=== PATIENT | male | born 1985 | race Caucasian/White ===

== ENCOUNTER 2017-03-10 23:00 | Emergency (ER) | payer OTHER ==
--- NOTE | 2017-03-10 23:37 | EDM.PDOC ---
ED HPI GENERAL MEDICAL PROBLEM - General Chief Complaint: Upper Extremity Injury/Pain Stated Complaint: SMASHED HIS LEFT HAND Time Seen by Provider: 03/10/17 23:35 - History of Present Illness INITIAL COMMENTS - FREE TEXT/NARRATIVE: HISTORY AND PHYSICAL: History of present illness: Patient 31-year-old white malein the past medical history presents for concern of acute left hand injury that occurred with blunt force trauma from a pipe he denies other trauma or concern is primarily involves the third digit of his left Review of systems: As per history of present illness and below otherwise all systems reviewed and negative. Past medical history: As per history of present illness and as reviewed below otherwise noncontributory. Surgical history: As per history of present illness and as reviewed below otherwise noncontributory. Social history: No reported history of drug or alcohol abuse. Family history: As per history of present illness and as reviewed below otherwise noncontributory. Physical exam: HEENT: Atraumatic, normocephalic, pupils reactive, negative for conjunctival pallor or scleral icterus, mucous membranes moist, throat clear, neck supple, nontender, trachea midline. Lungs: Clear to auscultation, breath sounds equal bilaterally, chest nontender. Heart: S1S2, regular, negative for clicks, rubs, or JVD. Abdomen: Soft, nondistended, nontender. Negative for masses or hepatosplenomegaly. Negative for costovertebral tenderness. Pelvis: Stable nontender. Genitourinary: Deferred. Rectal: Deferred. Extremities: Patient has tenderness swelling in the region of the distal third digit of his left hand is no gross deformity no tendon involvement CMS neurovascular exams unremarkable Neuro: Awake, alert, oriented. Cranial nerves II through XII unremarkable. Cerebellum unremarkable. Motor and sensory unremarkable throughout. Exam nonfocal. Diagnostics: X-ray left Therapeutics: To be determined Impression: #1 acute left hand injury (blunt force trauma) Definitive disposition and diagnosis as appropriate pending reevaluation and review of above. left hand Pain Score (Numeric/FACES): 7 - Related Data Allergies Allergy/AdvReac Type Severity Reaction Status Date / Time Penicillins Allergy Hives Verified 03/10/17 23:23 Home Meds: Home Meds . [No Known Home Meds] 03/10/17 [History] Past Medical History - Past Health History Medical/Surgical History: Denies Medical/Surgical History Social & Family History - Family History Family Medical History: Noncontributory - Tobacco Use Smoking Status *Q: Never Smoker - Recreational Drug Use Recreational Drug Use: No Review of Systems - Review of Systems Review Of Systems: ROS reveals no pertinent complaints other than HPI. ED EXAM, GENERAL - Physical Exam Exam: See Below (The dictation) Course - Vital Signs Last Recorded V/S: Last Vital Signs Temp 36.6 C 03/10/17 23:00 Pulse 67 03/10/17 23:00 Resp 16 03/10/17 23:00 BP 131/76 03/10/17 23:00 Pulse Ox 97 03/10/17 23:00 - Orders/Labs/Meds Orders: Active Orders 24 hr Category Date Time Status Hand Comp Min 3V Lt [CR] Stat Exams 03/10/17 23:20 Taken Departure - Departure Time of Disposition: 23:37 Disposition: Home, Self-Care 01 Condition: Good Clinical Impression: Hand injury, Hand fracture - Discharge Information Referrals: PCP,None [Primary Care Provider] - Forms: ED Department Discharge Additional Instructions: The following information is given to patients seen in the emergency department who are being discharged to home. This information is to outline your options for follow-up care. We provide all patients seen in our emergency department with a follow-up referral. The need for follow-up, as well as the timing and circumstances, are variable depending upon the specifics of your emergency department visit. If you don't have a primary care physician on staff, we will provide you with a referral. We always advise you to contact your personal physician following an emergency department visit to inform them of the circumstance of the visit and for follow-up with them and/or the need for any referrals to a consulting specialist. The emergency department will also refer you to a specialist when appropriate. This referral assures that you have the opportunity for followup care with a specialist. All of these measure are taken in an effort to provide you with optimal care, which includes your followup. Under all circumstances we always encourage you to contact your private physician who remains a resource for coordinating your care. When calling for followup care, please make the office aware that this follow-up is from your recent emergency room visit. If for any reason you are refused follow-up, please contact the [facility] emergency department at and asked to speak to the emergency department charge nurse. [facility] [address] [place] [id number] Splint as directed Motrin/Tylenol as directed follow-up hand surgery call above to schedule routine appointment return as needed as discussed] - My Orders Last 24 Hours: My Active Orders 03/10/17 23:20 Hand Comp Min 3V Lt [CR] Stat - Assessment/Plan Last 24 Hours: My Active Orders 03/10/17 23:20 Hand Comp Min 3V Lt [CR] Stat
[2017-03-11] MEDS ORDERED: methylPREDNISolone Sodium Succinate 1,000 MG/8 ML SDV IV STA (00:27)
--- NOTE | 2017-03-11 14:34 | CR ---
EXAM DATE: 03/10/17 PATIENT'S AGE: 31 Patient: BHAVANI FONSECA Facility: [place], [place] Site . Site : 1985 Study: XRay Extremity Left Hand [id number]/6/2017 12:09:27 AM Ordering Physician: Doctor Franco Final Report: INDICATION: Pipe fell on hand, swelling. TECHNIQUE: Hand radiograph 3 views COMPARISON: None FINDINGS: Oblique fracture lines at the left 3rd distal phalanx with adjacent soft tissue swelling. Fracture lines do not extend to the 3rd DIP joint. Alignment of the DIP and PIP joints normal. No radiopaque soft tissue foreign body. IMPRESSION: 1. Acute fracture, left 3rd distal phalanx. Dictated by Quinten Mccarthy MD @ 03/11/2017 12:12:07 AM Dictated by: Quinten Mccarthy MD @ 03/11/2017 00:12:13 (Electronic Signature) Report Signed by Proxy. SUJATHA
== END 2017-03-11 00:30 | disposition home or self-care (01) ==
LOC: MW.ED 23:00
DX: S62.633A Displaced fracture of distal phalanx of left middle finger, initial encounter for closed fracture (principal); W22.8XXA Striking against or struck by other objects, initial encounter; Z88.0 Allergy status to penicillin
CPT/HCPCS: 73130-26-LT; 73130-LT; 99282; 99283

== ENCOUNTER 2019-06-08 21:19 | Emergency (ER) | payer BC ==
[2019-06-08] MEDS ORDERED: Sodium Chloride 0.9% 1,000 ML IV ONE (22:01)
[2019-06-08] MEDS ORDERED: Ondansetron 4 MG/2 ML SDV IVPUSH ONE (22:01)
[2019-06-08] MEDS ORDERED: Ketorolac 30 MG/ML SDV IVPUSH ONE (22:01)
[2019-06-08] MEDS ORDERED: Sodium Chloride 0.9% 2.5 ML Syringe FLUSH PRN (22:01)
[2019-06-08] MEDS ORDERED: Sodium Chloride 0.9% 10 ML Syringe FLUSH PRN (22:01)
--- NOTE | 2019-06-08 22:04 | EDM.PDOC ---
ED HPI GENERAL MEDICAL PROBLEM - General Chief Complaint: Back Pain or Injury Stated Complaint: PAIN IN LOWER BACK AND ABDOMINAL Time Seen by Provider: 06/08/19 21:53 - History of Present Illness INITIAL COMMENTS - FREE TEXT/NARRATIVE: HISTORY AND PHYSICAL: History of present illness: The patient is a 33-year-old male with no significant past medical history and no GI or history who presents with onset of nausea and feeling ill about noon time which progressed and he came home from work as he was developing some lower back pain bilaterally and he went to sleep. He woke up and his lower back seem more achy but he had no abdominal complaints no urinary complaints and still had nausea. He only vomited here in the waiting room in the ER. He said no fevers cough chest pain or shortness of breath no dysuria frequency urgency and no flank pain. He last ate at lunchtime and currently is not hungry. He has not had any upper respiratory complaints and no recent trauma. He has no midline neck or back pain and no recent falls. He says he has had backaches in the past but is never seen a doctor for them. The pain he is describing is deep and achy in his bilateral lumbar back and does not localize right or left. He did not take any medication for this discomfort. The patient does not feel bloated or gassy and says that there is some mild discomfort with movement. The patient says he had a normal bowel movement today that was not black or bloody Review of systems: As per history of present illness and below otherwise all systems reviewed and negative. Past medical history: As per history of present illness and as reviewed below otherwise noncontributory. Surgical history: As per history of present illness and as reviewed below otherwise noncontributory. Social history: No reported history of drug or alcohol abuse. Family history: As per history of present illness and as reviewed below otherwise noncontributory. Physical exam: General: Well-developed well-nourished man who is nontoxic and moves easily in the ED. Vital signs are noted by me HEENT: Atraumatic, normocephalic, pupils reactive, negative for conjunctival pallor or scleral icterus, mucous membranes moist, throat clear, neck supple, nontender, trachea midline. Lungs: Clear to auscultation, breath sounds equal bilaterally, chest nontender. Heart: S1S2, regular, negative for clicks, rubs, or JVD. Abdomen: Soft, nondistended, bowel sounds are hypoactive and there is some mild right lower quadrant tenderness without rebound or guarding. Negative for masses or hepatosplenomegaly. Negative for costovertebral tenderness. Pelvis: Stable nontender. Genitourinary: Deferred. Rectal: Deferred. Extremities: Atraumatic, negative for cords or calf pain. Neurovascular unremarkable. Neuro: Awake, alert, oriented. Cranial nerves II through XII unremarkable. Cerebellum unremarkable. Motor and sensory unremarkable throughout. Exam nonfocal. Back: There are no midline step-offs tenderness defects of the thoracic or lumbar spine no posterior rib or CVA tenderness and some minimal tenderness to palpation of the lower lumbar area bilaterally without localization. Diagnostics: UA with reflex CBC CMP CT scan of the abdomen and pelvis Therapeutics: IV fluids Zofran Toradol The patient feels improved and I discussed with him all testing results and need to increase hydration and to follow-up if the symptoms return. Impression: Lumbar back pain, nausea with one episode of vomiting resolved Definitive disposition and diagnosis as appropriate pending reevaluation and review of above. back Pain Score (Numeric/FACES): 7 - Related Data Allergies Allergy/AdvReac Type Severity Reaction Status Date / Time Penicillins Allergy Hives Verified 06/08/19 21:31 Home Meds: Home Meds . [No Known Home Meds] 03/10/17 [History] Past Medical History - Past Health History Medical/Surgical History: Denies Medical/Surgical History Gastrointestinal History: Reports: Chronic Constipation - Infectious Disease History Infectious Disease History: Reports: Chicken Pox Social & Family History - Family History Family Medical History: Noncontributory - Tobacco Use Smoking Status *Q: Current Every Day Smoker Years of Tobacco use: 5 Packs/Tins Daily: 1 - Caffeine Use Caffeine Use: Reports: Coffee - Alcohol Use Days Per Week of Alcohol Use: 7 Number of Drinks Per Day: 2 Total Drinks Per Week: 14 - Recreational Drug Use Recreational Drug Use: No ED ROS GENERAL - Review of Systems Review Of Systems: Comprehensive ROS is negative, except as noted in HPI. ED EXAM, GENERAL - Physical Exam Exam: See Below (see dictation) Course - Vital Signs Last Recorded V/S: Last Vital Signs Temp 36.1 C 06/08/19 21:27 Pulse 107 H 06/08/19 21:27 Resp 19 06/08/19 21:27 BP 146/66 H 06/08/19 21:27 Pulse Ox 94 L 06/08/19 21:27 - Orders/Labs/Meds Orders: Active Orders 24 hr Category Date Time Status Sodium Chloride 0.9% [Saline Flush] Med 06/08/19 22:01 Active 10 ml FLUSH ASDIRECTED PRN Sodium Chloride 0.9% [Saline Flush] Med 06/08/19 22:01 Active 2.5 ml FLUSH ASDIRECTED PRN Saline Lock Insert [OM.PC] Stat Oth 06/08/19 22:00 Ordered Medication Orders Sodium Chloride (Saline Flush) 10 ml FLUSH ASDIRECTED PRN PRN Reason: Keep Vein Open Sodium Chloride (Saline Flush) 2.5 ml FLUSH ASDIRECTED PRN PRN Reason: Keep Vein Open Labs: Laboratory Tests 06/08/19 06/08/19 06/08/19 Range/Units 21:54 22:22 22:22 WBC 8.16 (4.0-11.0) K/uL RBC 5.59 (4.50-5.90) M/uL Hgb 17.3 H (13.0-17.0) g/dL Hct 47.7 (38.0-50.0) % MCV 85.3 (80.0-98.0) fL MCH 30.9 (27.0-32.0) pg MCHC 36.3 (31.0-37.0) g/dL RDW Std Deviation 38.2 (28.0-62.0) fl RDW Coeff of Cruz 12 (11.0-15.0) % Plt Count 170 (150-400) K/uL MPV 10.00 (7.40-12.00) fL Neut % (Auto) 85.9 H (48.0-80.0) % Lymph % (Auto) 7.5 L (16.0-40.0) % [place] % (Auto) 6.0 (0.0-15.0) % Eos % (Auto) 0.5 (0.0-7.0) % Baso % (Auto) 0.1 (0.0-1.5) % Neut # (Auto) 7.0 H (1.4-5.7) K/uL Lymph # (Auto) 0.6 (0.6-2.4) K/uL [place] # (Auto) 0.5 (0.0-0.8) K/uL Eos # (Auto) 0.0 (0.0-0.7) K/uL Baso # (Auto) 0.0 (0.0-0.1) K/uL Nucleated RBC % 0.0 /100WBC Nucleated RBCs # 0 K/uL Sodium 141 (136-148) mmol/L Potassium 3.7 (3.5-5.1) mmol/L Chloride 102 (98-107) mmol/L Carbon Dioxide 25.9 (21.0-32.0) mmol/L BUN 17 (7.0-18.0) mg/dL Creatinine 1.1 (0.8-1.3) mg/dL Est Cr Clr Drug Dosing 97.27 mL/min Estimated GFR (MDRD) > 60.0 ml/min Glucose 113 H (74-106) mg/dL Calcium 8.7 (8.5-10.1) mg/dL Total Bilirubin 0.8 (0.2-1.0) mg/dL AST 20 (15-37) IU/L ALT 36 (14-63) IU/L Alkaline Phosphatase 51 (46-116) U/L Total Protein 7.5 (6.4-8.2) g/dL Albumin 4.3 (3.4-5.0) g/dL Globulin 3.2 (2.6-4.0) g/dL Albumin/Globulin Ratio 1.3 (0.9-1.6) Urine Color YELLOW Urine Appearance CLEAR Urine pH 6.5 (5.0-8.0) Ur Specific [place] 1.020 (1.001-1.035) Urine Protein NEGATIVE (NEGATIVE) mg/dL Urine Glucose (UA) NEGATIVE (NEGATIVE) mg/dL Urine Ketones 40 H (NEGATIVE) mg/dL Urine Occult Blood NEGATIVE (NEGATIVE) Urine Nitrite NEGATIVE (NEGATIVE) Urine Bilirubin SMALL H (NEGATIVE) Urine Ictotest NEGATIVE Urine Urobilinogen 1.0 (<2.0) EU/dL Ur Leukocyte Esterase NEGATIVE (NEGATIVE) Meds: Medications Generic Name Dose Route Start Last Admin Trade Name Freq PRN Reason Stop Dose Admin Sodium Chloride 10 ml 06/08/19 22:01 Saline Flush FLUSH ASDIRECTED PRN Keep Vein Open Sodium Chloride 2.5 ml 06/08/19 22:01 Saline Flush FLUSH ASDIRECTED PRN Keep Vein Open Discontinued Medications Generic Name Dose Route Start Last Admin Trade Name Nargis PRN Reason Stop Dose Admin Sodium Chloride 1,000 mls @ 999 mls/hr 06/08/19 22:01 06/08/19 22:23 Normal Saline IV 06/08/19 23:01 999 mls/hr STAT ONE Administration Ketorolac Tromethamine 30 mg 06/08/19 22:01 06/08/19 22:23 Toradol IVPUSH 06/08/19 22:02 30 mg ONETIME ONE Administration Ondansetron HCl 4 mg 06/08/19 22:01 06/08/19 22:23 Zofran IVPUSH 06/08/19 22:02 4 mg ONETIME ONE Administration Departure - Departure Time of Disposition: 23:20 Disposition: Home, Self-Care 01 Condition: Good Clinical Impression: Back pain Qualifiers: Back pain location: low back pain Chronicity: unspecified Back pain laterality : bilateral Sciatica presence: without sciatica Qualified Code(s): M54.5 - Low back pain Vomiting Qualifiers: Vomiting type: unspecified Vomiting Intractability: non-intractable Nausea presence: with nausea Qualified Code(s): R11.2 - Nausea with vomiting, unspecified - Discharge Information Referrals: PCP,None [Primary Care Provider] - Forms: ED Department Discharge Additional Instructions: The following information is given to patients seen in the emergency department who are being discharged to home. This information is to outline your options for follow-up care. We provide all patients seen in our emergency department with a follow-up referral. The need for follow-up, as well as the timing and circumstances, are variable depending upon the specifics of your emergency department visit. If you don't have a primary care physician on staff, we will provide you with a referral. We always advise you to contact your personal physician following an emergency department visit to inform them of the circumstance of the visit and for follow-up with them and/or the need for any referrals to a consulting specialist. The emergency department will also refer you to a specialist when appropriate. This referral assures that you have the opportunity for followup care with a specialist. All of these measure are taken in an effort to provide you with optimal care, which includes your followup. Under all circumstances we always encourage you to contact your private physician who remains a resource for coordinating your care. When calling for followup care, please make the office aware that this follow-up is from your recent emergency room visit. If for any reason you are refused follow-up, please contact the [facility] emergency department at and ask to speak to the emergency department charge nurse. [facility] Primary care- Internal Medicine and Family [address] [address] Push hydration and try to reduce caffeine use. Use [id number] ibuprofen or Tylenol as well as heat and ice to the areas of your back for discomfort. Try to do all movements more slowly and use good body mechanics for bending and lifting. Follow-up with 1 of our providers in the clinic for reevaluation and further care and return to ER as needed and as discussed Sepsis Event Note - Evaluation Sepsis Screening Result: No Definite Risk - Focused Exam Vital Signs: Vital Signs Temp Pulse Resp BP Pulse Ox 06/08/19 21:27 36.1 C 107 H 19 146/66 H 94 L Date Exam was Performed: 06/08/19 Time Exam was Performed: 23:20 - My Orders Last 24 Hours: My Active Orders 06/08/19 22:00 Saline Lock Insert [OM.PC] Stat 06/08/19 22:01 Sodium Chloride 0.9% [Saline Flush] 10 ml FLUSH ASDIRECTED PRN Sodium Chloride 0.9% [Saline Flush] 2.5 ml FLUSH ASDIRECTED PRN - Assessment/Plan Last 24 Hours: My Active Orders 06/08/19 22:00 Saline Lock Insert [OM.PC] Stat 06/08/19 22:01 Sodium Chloride 0.9% [Saline Flush] 10 ml FLUSH ASDIRECTED PRN Sodium Chloride 0.9% [Saline Flush] 2.5 ml FLUSH ASDIRECTED PRN
--- NOTE | 2019-06-08 22:40 | CT ---
INDICATION: Right flank pain. CT ABDOMEN AND PELVIS WITHOUT CONTRAST TECHNIQUE: Multidetector CT imaging was performed through the abdomen and pelvis without intravenous or oral contrast. Coronal and sagittal reconstructions were generated. COMPARISON: None. FINDINGS: No stones are visualized within the kidneys, ureters, or urinary bladder. There is no ureteral dilation, hydronephrosis, or perinephric/periureteral stranding to suggest ureteral obstruction. Included portions of the lower chest show the lung bases to be clear. No abnormalities are demonstrated in the unenhanced liver, spleen, gallbladder, pancreas, stomach, and adrenals. Bowel loops are of normal caliber and demonstrate no wall thickening. The appendix is normal. No free fluid or free air is identified. The abdominal aorta appears normal in caliber. No abnormally enlarged lymph nodes are seen. The urinary bladder, prostate, and seminal vesicles are within normal limits. Visualized bones show no acute findings. IMPRESSION: No acute abnormality identified. No cause for the patient`s symptoms is apparent. RIYA PEMBERTON MD [employer] [facility] [employer] Dictated by: Cole Pemberton MD @ 06/08/2019 22:39:59 (Electronically Signed)
[2019-06-08 22:53] LABS: BLOOD UREA NITROGEN,BUN 17 mg/dL (7.0-18.0); CARBON DIOXIDE,CO2 25.9 mmol/L (21.0-32.0); CHLORIDE,CL 102 mmol/L (98-107); GLUCOSE RANDOM 113 mg/dL (74-106); POTASSIUM,K 3.7 mmol/L (3.5-5.1); SODIUM,NA 141 mmol/L (136-148)
== END 2019-06-08 23:42 | disposition home or self-care (01) ==
LOC: MW.ED 21:19
DX: M54.5 Low back pain (principal); R11.2 Nausea with vomiting, unspecified; F17.210 Nicotine dependence, cigarettes, uncomplicated; Z88.0 Allergy status to penicillin
CPT/HCPCS: 36415; 74176; 80053; 81003; 85025; 96361; 96374; 96375; 99284; J1885; J2405; J7030